=== PATIENT | male | born 1980 | race Caucasian/White ===

== ENCOUNTER → 2023-11-07 12:24 | Outpatient (BNVA) | payer OTHER, SELFPAY | PROVIDERS: Visit Provider Emergency Medicine | DX: M19.011 Primary osteoarthritis, right shoulder (principal); M25.511 Pain in right shoulder | CPT/HCPCS: 73030 ==

== ENCOUNTER 2024-01-07 09:11 | Outpatient (CLI) | payer OTHER, SELFPAY ==
--- NOTE | 2024-01-07 09:30 | MR_ITS ---
WS: [id number] MRI RIGHT SHOULDER NONCONTRAST TECHNIQUE: Sagittal T2, coronal T1, T2 and proton density imaging. Axial gradient PDE imaging. CLINICAL INFORMATION: continued/worsening right shoulder pain 6 wks p injury COMPARISON: None. FINDINGS: Some images degraded by motion. Moderate degenerative arthritis AC joint with fluid and edema. Moderate downsloping acromion with sub acromial spurring with narrowing of the subacromial space. Small amount of subacromial subdeltoid flu id. Impingement distal supraspinatus with tendinopathy. Tiny undersurface tear distal supraspinatus. Nor mal infraspinatus. Normal teres minor. Subscapularis tendon appears intact. Normal biceps tendon in t he bicipital groove. Biceps labral anchor appears intact. Intra-articular biceps tendon appears scott l. Normal bone marrow signal in the humerus and glenoid. MR/MR shoulder RT wo con* [id number] IMPRESSION: 1. Moderate degenerative arthritis at the AC joint with fluid and edema. Moder ate downsloping the acromion. 2. Slight impingement on the distal supraspinatus with narrowing of the subacr omial space and tendinopathy. Tiny undersurface tear distal supraspinatus. 3. Rotator cuff is otherwise normal in appearance. 4. Normal biceps tendon in the bicipital groove. 5. Biceps labral anchor appears normal.
== END 2024-01-07 09:12 | disposition home or self-care (01) ==
PROVIDERS: PCP Family Medicine; Visit Provider Family Medicine
DX: S46.811A Strain of other muscles, fascia and tendons at shoulder and upper arm level, right arm, initial encounter (principal); S43.111A Subluxation of right acromioclavicular joint, initial encounter; M19.011 Primary osteoarthritis, right shoulder; M25.711 Osteophyte, right shoulder; M75.41 Impingement syndrome of right shoulder; M75.91 Shoulder lesion, unspecified, right shoulder; X58.XXXA Exposure to other specified factors, initial encounter
CPT/HCPCS: 73221